=== PATIENT | female | born 1980 | race Hispanic/Latino ===

== ENCOUNTER → 2019-02-25 | Outpatient (CLI) | payer OTHER | END | disposition home or self-care (01) | LOC: RAH 09:36 | PROVIDERS: ATTEND Internal Medicine | DX: Z12.31 Encounter for screening mammogram for malignant neoplasm of breast (principal) | CPT/HCPCS: 77067 ==

== ENCOUNTER → 2022-02-02 | Outpatient (CLI) | payer OTHER | END | disposition home or self-care (01) | LOC: RAH 09:26 | PROVIDERS: ATTEND Specialist | DX: N63.11 Unspecified lump in the right breast, upper outer quadrant (principal); Z85.3 Personal history of malignant neoplasm of breast | CPT/HCPCS: 76641; 77066 ==